=== PATIENT | female | born 1975 | race Caucasian/White ===

== ENCOUNTER → 2017-04-05 | Outpatient (CLI) | payer MEDICAID | LOC: FIMAGING 16:21 | PROVIDERS: ATTEND Physician Assistant | DX: R20.2 Paresthesia of skin (principal); R20.0 Anesthesia of skin ==

== ENCOUNTER → 2017-05-07 | Outpatient (CLI) | payer MEDICAID | LOC: FIMAGING 08:45 | PROVIDERS: ATTEND Physician Assistant | DX: Z12.31 Encounter for screening mammogram for malignant neoplasm of breast (principal) ==

== ENCOUNTER → 2018-05-17 | Outpatient (CLI) | payer MEDICAID | LOC: FIMAGING 08:53 | PROVIDERS: ATTEND Physician Assistant | DX: Z12.31 Encounter for screening mammogram for malignant neoplasm of breast (principal) ==